=== PATIENT | female | born 1980 | race Caucasian/White ===

== ENCOUNTER 2019-10-07 22:32 | Emergency (ER) | payer MEDICAID, SELFPAY ==
[2019-10-07 22:34] VITALS: BP 157/83; PULSE 111; RESP 15; TEMP 36.7; O2SAT 94; BMI 46.3
--- NOTE | 2019-10-07 22:57 | EKG12_ITS ---
Test Reason : BACK/SHOULDER PAIN Blood Pressure : / mmHG Vent. Rate : 112 BPM Atrial Rate : 112 BPM P-R Int : 196 ms QRS Dur : 090 ms QT Int : 326 ms P-R-T Axes : 037 025 027 degrees QTc Int : 444 ms Sinus tachycardia Otherwise normal ECG Confirmed by PRESTON WILSON, ZAIRA ([id number]), commercial production editor HAROLDO PENA ([id number]) on 10/10/2019 9:02:55 AM Referred By: HILARY Confirmed By:ZAIRA JOHNSTON MD
[2019-10-07 23:20] LABS: Bacteria 0 SEEN /hpf (None Seen); Mucous, Urine 0 SEEN /hpf (<or=2+); Red Blood Cells-Urine 0 SEEN /hpf (0-5); Squamous Epithelial Cells - UA 0 SEEN /hpf (5-10); White Blood Cells 0 SEEN /hpf (0-5)
[2019-10-07 23:21] LABS: Color, Urine Yellow (Yellow); Glucose, Dipstick Normal (Normal); Ketone-Dipstick Negative (Negative); Leukocyte Esterase-Dipstick Negative /ul (Negative); Nitrite-Dipstick Negative (Negative); Occult Blood-Urine Negative /ul (Negative); Protein-Dipstick Negative (Negative); Urine Bilirubin Dipstick Negative (Negative); Urine Clarity Clear (Clear); Urine Urobilinogen Normal (Normal)
[2019-10-07 23:44] LABS: Absolute Lymphocyte Count 4.91 X10^3/uL (0.83-4.51); Absolute Neutrophil Count 10.5 X10^3/uL (2.0-7.7); Basophil# 0.13 X10^3/uL; Basophil% 0.7 % (0-1); Eosinophils% 3.5 % (0-5); Hematocrit 40.5 % (37-47); Hemoglobin 13.5 g/dL (12.0-15.0); Lymphocyte # 4.91 X10^3/ul (4.0); Lymphocyte % 28.2 % (19-41); Mean Corp Hgb Conc 33.3 g/dL (32-36); Mean Corpuscular Hgb 29.3 pg (27.0-32.0); Mean Corpuscular Volume 87.9 fL (81-99); Mean Platelet Vol. 10.1 fl (6.2-12.0); Monocyte# 1.11 X10^3/uL; Monocyte% 6.4 % (0-10); NRBC Flagged by Analyzer 0 % (0-5); Neutrophil # 10.49 X10^3/uL (2.7-7.7); Neutrophil % 60.3 % (47-70); POSITIVE MORPHOLOGY YES; Platelet Count 460 K/mm3 (150-450); RBC Distribution Width CV 14.4 % (11.6-14.6); RBC Distribution Width SD 45.9 fl (35.1-43.9); Red Blood Count 4.61 M/mm3 (4.2-5.4); White Blood Count 17.4 K/mm3 (4.4-11.0)
[2019-10-07] MEDS: Ondansetron 4 MG/2 ML Vial IV (23:45)
[2019-10-07] MEDS: Morphine 4 MG/ML Syringe IV (23:46)
[2019-10-07 23:49] LABS: Differential Indicated SCAN CRITERIA MET
[2019-10-08 00:13] LABS: Atypical Lymphocyte 1+ %; Differential Comment SCANNED; Reactive Lymphocyte 2+
[2019-10-08 00:30] LABS: Anion Gap 5 (5-15); BUN 14 mg/dL (7-18); BUN/Creat Ratio 12.8 RATIO (10-20); Calcium,Total 8.6 mg/dL (8.5-10.1); Chloride 107 mmol/L (98-107); Creatinine, Serum 1.09 mg/dL (0.55-1.02); EST Glomerular Filtration Rate 59 mL/min (>60); Est Glom Filt Rate - Afr Amer 71 mL/min (>60); Estimated Creatinine Clearance 59.24 ml/min; Glucose 110 mg/dL (74-106); Potassium 4.5 mmol/L (3.5-5.1); Sodium Level 135 mmol/L (136-145)
--- NOTE | 2019-10-08 00:43 | CT_ITS ---
STUDY: CTA CHEST REASON FOR EXAM: Female, 39 years old patient with left upper back pain and dizziness. RADIATION DOSAGE (If Supplied By Facility): CTDIvol = ( 12.665 ) mGy, DLP = ( 511.26 ) mGycm TECHNIQUE: The examination was performed with the intravenous administration of 100 ml of Isovue 370. Post-processing of the angiographic images was performed, with multiplanar reformation and 3D reconstruction. Individualized dose optimization techniques were used for this CT. COMPARISON: None. FINDINGS: Normal enhancement of the main pulmonary artery and right and left pulmonary arteries. There is limited enhancement of the bilateral peripheral pulmonary arteries. There is no demonstrated pulmonary embolism. There is prominence of the main pulmonary arteries without peripheral pulmonary vascular congestion. Normal thoracic aorta and visualized great vessels. There is no demonstrated aortic dissection. Normal heart and pericardium. There are visualized mediastinal lymph nodes, which are within normal size limits, and with normal morphology. Normal hilar regions. Normal visualized trachea and bronchi. The lungs are well expanded. Normal pulmonary parenchyma. Normal pleura. Normal chest wall structures. There appears to be a ununited fracture of the posterior right ninth, 10th and 11th ribs. There is also evidence for healed left-sided rib fracture.. Normal visualized upper abdomen. CT/CTA Chest W/WO Contrast IMPRESSION: 1. No CTA demonstrated pulmonary embolism or arterial dissection. 2. Multiple posterior right-sided ununited rib fractures. Electronically Signed: Acacia Dhaliwal MD at 2:23 EDT , Service support ,
[2019-10-08 00:44] LABS: D-Dimer Quantitative (DVT/PE) 0.57 FEU/ug/m (0.27-0.49)
[2019-10-08] MEDS: 0.9% Normal Saline 1,000 ML 150 ML IV (01:32)
[2019-10-08] MEDS: HYDROmorphone 1 MG/ML Syringe IV (01:32)
[2019-10-08 01:34] VITALS: BP 144/84; PULSE 104; RESP 18; O2SAT 96
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
--- NOTE | 2019-10-08 02:42 | ED.DEP ---
ED Disposition - Plan for ED Patient: Instructions: ED Spasm Back No Trauma Prescriptions: cycloBENZAPRine HCl [Flexeril] 10 mg PO TID PRN #20 tab PRN Reason: Muscle Spasm Prescription Printed Hydrocodone Bitart/Apap 5-325 [[place] 5MG-325MG] 1 tab PO Q4H PRN PRN 2 Days #14 tab PRN Reason: Pain Prescription Printed Referrals: Tutu Garcia MD [Primary Care Provider] -
[2019-10-08 02:53] VITALS: BP 136/54; PULSE 107; RESP 18; O2SAT 93
== END 2019-10-08 02:55 | disposition home or self-care (01) ==
PROVIDERS: Emergency Provider Emergency Medicine; PCP Family Medicine
DX: M54.9 Dorsalgia, unspecified (principal); R20.2 Paresthesia of skin; R07.89 Other chest pain; M62.830 Muscle spasm of back; R79.89 Other specified abnormal findings of blood chemistry; Z72.0 Tobacco use
CPT/HCPCS: 71275; 80048; 81001; 84484; 85025; 85379; 93005; 96361; 96374; 96375; 99285; J7030; Q9967; A4216; J2405